=== PATIENT | female | born 1975 | race African-American/Black ===

== ENCOUNTER 2021-04-24 21:17 | Emergency (ER) | payer OTHER ==
[~2021-04-24] VITALS: Ht 172.7 cm; Wt 72.7 kg
[2021-04-24] MEDS ORDERED: TRAZ-257 PO (22:41)
[2021-04-24] MEDS ORDERED: CHLO5CAP3 PO (22:41)
[2021-04-25] LABS: COVID AG,FIA SOURCE NASOPHARYNGEAL
[2021-04-25 05:59] VITALS: BP 156/66
[2021-04-25 10:46] LABS: BASOPHILS % (AUTO) 1.7 % (0.0-2.0); EOSINOPHILS % (AUTO) 0.9 % (1.0-6.0); HEMATOCRIT 34.3 % (36-46); HEMOGLOBIN 10.6 g/dL (12.0-16.0); LYMPHOCYTES # (AUTO) 1.1 K/uL (1.0-4.8); LYMPHOCYTES % (AUTO) 26.3 % (22.0-44.0); MEAN CORPUSCULAR HEMOGLOBIN 22.4 pg (26.0-34.0); MEAN CORPUSCULAR VOLUME 72 fL (80-100); MONOCYTES # (AUTO) 0.4 K/uL (0.1-1.0); MONOCYTES % (AUTO) 8.9 % (2.0-9.0); NEUTROPHILS # (AUTO) 2.7 K/uL (1.8-7.7); NEUTROPHILS % (AUTO) 62.2 % (40.0-70.0); PLATELET COUNT (AUTO) 136 K/uL (150-450); RED BLOOD CELL COUNT(AUTO) 4.75 MIL/uL (4.00-5.20); RED CELL DISTRIBUTION WIDTH 24.3 % (11.5-14.5)
[2021-04-25 10:48] LABS: CALCIUM, TOTAL 8.8 mg/dL (8.8-10.5); CREATININE 0.63 mg/dL (0.60-1.30); GLOMERULAR FILTR. RATE CALC > 60 mL/min (>60); GLUCOSE,RANDOM 88 mg/dL (70-110); UREA NITROGEN, BLOOD 3 mg/dL (7-18)
[2021-04-25 10:59] LABS: ALANINE AMINOTRANSFERASE 88 U/L (12-78); ALBUMIN 3.4 g/dL (3.4-5.0); ALKALINE PHOSPHATASE 156 U/L (46-116); ANION GAP 8 mmol/L (8-16); ASPARTATE AMINOTRANSFERASE 230 U/L (15-37); BILIRUBIN,TOTAL 0.5 mg/dL (0.1-1.0); CARBON DIOXIDE 30 mmol/L (22-29); CHLORIDE 103 mmol/L (98-107); HCG,QUANTITATIVE 1 mIU/mL (0-6); POTASSIUM 4.1 mmol/L (3.5-5.1); SODIUM SERUM 141 mmol/L (136-145); TOTAL PROTEIN, SERUM 7.9 g/dL (6.4-8.2)
== END 2021-04-25 11:38 | disposition short-term general hospital (02) ==
LOC: EMS 21:20
DX: F20.9 Schizophrenia, unspecified (principal); F10.10 Alcohol abuse, uncomplicated; Z20.822 Contact with and (suspected) exposure to COVID-19; Y90.0 Blood alcohol level of less than 20 mg/100 ml
CPT/HCPCS: 36415; 80053; 84702; 85025; 87426; 99285; G0480